=== PATIENT | female | born 1950 | race Caucasian/White ===

== ENCOUNTER 2021-03-18 16:15 | Emergency (ER) | payer MEDICARE, OTHER, SELFPAY ==
--- NOTE | 2021-03-18 17:08 | PC.NURSE ---
pt previously spoke with staff and stated she did not want to wait to be seen and would come back in am. observed pt leaving building accompanied by a male.
== END 2021-03-18 17:08 | disposition left against medical advice (07) ==
PROVIDERS: Emergency Provider Nurse Practitioner Family; PCP Family Medicine
DX: Z53.21 Procedure and treatment not carried out due to patient leaving prior to being seen by health care provider (principal)
CPT/HCPCS: 99199

== ENCOUNTER 2021-03-18 18:45 | Emergency (ER) | payer MEDICARE, OTHER, SELFPAY ==
--- NOTE | ~2021-03-18 | XR_ITS ---
XR hand RT min 3V DATE: 03/18/2021 19:11 INDICATION: Fall. Right wrist and hand pain TECHNIQUE: 3 views of right hand COMPARISON: None FINDINGS: Comminuted intra-articular fracture of the distal radius is again noted. There is mild osteoarthritis at the first carpometacarpal joint. No other fracture or dislocation is evident. IMPRESSION: Comminuted intra-articular fracture distal radius with dorsal inclination of distal radia l and reticular surface Reviewed, dictated and finalized at location A. IMPRESSION: Comminuted intra-articular fracture distal radius with dorsal incli nation of distal radial and reticular surface
--- NOTE | ~2021-03-18 | XR_ITS ---
XR wrist RT min 3V DATE: 03/18/2021 19:11 INDICATION: Fall. Right wrist and hand pain TECHNIQUE: 4 views of right wrist COMPARISON: None FINDINGS: There is a minimally displaced comminuted intra-articular fracture of the distal radius. Th ere is dorsal inclination of the distal radial articular surface. Radiocarpal alignment is preserved. No other fracture is evident. IMPRESSION: Comminuted intra-articular fracture of the distal radius with dorsal inclination of the d istal radial articular surface Reviewed, dictated and finalized at location A. IMPRESSION: Comminuted intra-articular fracture of the distal radius with dorsa l inclination of the distal radial articular surface
[2021-03-18 18:57] VITALS: BP 144/79; PULSE 85; RESP 16; TEMP 37.2; O2SAT 99
--- NOTE | 2021-03-18 19:01 | ED.GENADULT ---
HPI - General Adult General Chief complaint: Extremity Injury, Upper Stated complaint: rt wrist/hand injury Source: patient Mode of arrival: ambulatory Limitations: no limitations History of Present Illness HPI narrative: Patient is a 70-year-old female presents [facility] via POV for evaluation of a right wrist injury that occurred at approximately 130 today. She states she accidentally tripped over her flip-flop going up steps and fell onto right wrist. She reports nausea, pain, and swelling. Pain is intermittent and aching nature. Current pain level is 5 out of 10 on a pain scale. Ice and ibuprofen improves symptoms. Movement worsens symptoms. Related Data Home Medications Medication Instructions Recorded Confirmed No Home Medications 03/18/21 03/18/21 Allergies Allergy/AdvReac Type Severity Reaction Status Date / Time No Known Allergies Allergy Unverified 03/18/21 19:04 Review of Systems Review of Systems: Denies fever, chills, sweats, change in appetite, poor p.o. intake, malaise, skin color changes, rash, warmth, numbness, tingling, loss of sensation, deformity, decreased range of motion, weakness, difficulty with ambulation/coordination, abdominal pain, constipation, vomiting, lymphadenopathy, shortness of breath, chest pain, heart palpitations, and heart murmur. [facility] Past Medical History Medical History (Updated 03/18/21 @ 19:30 by MARCO Spencer, ) FH: mastectomy Surgical History Surgical History (Updated 03/18/21 @ 19:03 by MARCO Spencer, ) H/O hysterectomy for benign disease Family History Family History Father Family history of malignant neoplasm of bone Social History Social History Smoking status: Never smoker Second hand tobacco smoke exposure: No Alcohol intake: never Comments I have reviewed and agree with the patient's past medical, surgical, social, and family hx as documented by the RN. There is no relevant family history pertinent to the presenting complaint. Exam Narrative: GENERAL: Well-appearing, well-nourished, and in no acute distress. HEAD: Normocephalic, atraumatic. NECK: Supple. No Lymphadenopathy or nuchal rigidity appreciated. CHEST: Bilateral lung tompkins are clear to auscultation. No respiratory distress. No evidence of cough or pleuritic cp upon examination. HEART: Regular rate and rhythm. No murmur, gallop, or rub heard. EXTREMITIES: No evidence of injury, decreased ROM, swelling, cyanosis, hematoma, laceration, abrasion, deformity, rash, or puncture. No evidence of pain with active/passive ROM. No evidence of dislocation, ligament laxity, effusion, or pain at rest. Pulses palpable at 2+, strength 5/5, and cap refill < 3 seconds in affected extremity. DTRs normal. Gait normal. SKIN: Warm, dry, no rash. NEURO: No focal deficits. Alert and oriented x3. SPECIAL OBSERVATIONS: Smiling. Laughing. Course MANAGED CARE DIRECTOR/PA Physician Supervision Paper script for Tramadol 50 mg tab: take 1 tab PO Q8H PRN moderate pain Disp. 20 (twenty) tabs 0 refill Vital Signs Vital signs: Vital Signs Temperature 99 F 03/18/21 18:57 Pulse Rate 85 03/18/21 18:57 Respiratory Rate 16 03/18/21 18:57 Blood Pressure 144/79 H 03/18/21 18:57 Pulse Oximetry 99 03/18/21 18:57 Temperature 99 F 03/18/21 18:57 Pulse Rate 85 03/18/21 18:57 Respiratory Rate 16 03/18/21 18:57 Blood Pressure 144/79 H 03/18/21 18:57 Pulse Oximetry 99 03/18/21 18:57 Procedures Orthopedic Splinting/Casting Injury #1: Splinting/Casting Date: 03/18/21 Splinting/Casting Time: 19:28 Side: right Upper Extremity Injury Location: wrist Splint: prefabricated OCL: volar Pre-Procedure Neuro Vascular Exam: normal Post-Procedure Neuro Vascular Exam: normal Medical Decision Making Differential D
== END 2021-03-18 19:56 | disposition home or self-care (01) ==
PROVIDERS: Emergency Provider Nurse Practitioner Family; PCP Family Medicine
DX: S52.501A Unspecified fracture of the lower end of right radius, initial encounter for closed fracture (principal); W10.9XXA Fall (on) (from) unspecified stairs and steps, initial encounter; Z90.10 Acquired absence of unspecified breast and nipple
CPT/HCPCS: 29515; 73110; 73130; 99214; A4565; G0463

== ENCOUNTER 2021-03-29 07:55 | Outpatient (CLI) | payer MEDICARE, OTHER, SELFPAY ==
--- NOTE | ~2021-03-29 | XR_ITS ---
EXAMINATION: XR chest 2V DATE: 03/29/2021 10:38 INDICATION: Difficulty breathing TECHNIQUE: PA and lateral views of the chest were obtained. COMPARISON: Chest radiograph dated 05/05/2018 FINDINGS: The lungs remain clear with no focal airspace opacities, pulmonary edema, pleural effusion or pneumot horax. The cardiomediastinal silhouette is normal. Mild to moderate thoracic spondylosis. IMPRESSION: 1. No acute cardiopulmonary disease. Reviewed, dictated and finalized at location B.
[2021-03-29 10:06] LABS: Basophils Absolute Auto 0.1 K/mm3 (0.0-0.1); Eosinophils Absolute Auto 0.1 K/mm3 (0-0.3); Eosinophils Percent Auto 1.3 % (0-4.4); Hematocrit 44.5 % (37.0-47.0); Hemoglobin 14.5 g/dL (12.0-15.0); Immature Granulocyte Absolute 0.01 K/mm3 (0.00-0.031); Immature Granulocyte Percent A 0.1 % (0-0.5); Lymphocytes Absolute Auto 1.82 K/mm3 (0.9-3.2); Lymphocytes Percent Auto 26.7 % (18.3-44.2); Mean Corpuscular HGB Conc 32.6 g/dl (32-36); Mean Corpuscular Hemoglobin 28.8 pg (26-34); Mean Corpuscular Volume 88.3 fl (80-100); Mean Platelet Volume 9.7 fl (7.4-10.4); Monocytes Absolute Auto 0.6 K/mm3 (0.1-0.6); Monocytes Percent Auto 9.2 % (2.6-8.5); Neutrophils Absolute Auto 4.2 K/mm3 (1.3-6.7); Neutrophils Percent Auto 61.7 % (45.5-73.1); Platelet Count Result 372 k/mm3 (150-375); Red Blood Count 5.04 M/mm3 (4.2-5.4); Red Cell Distribution Width 13.2 % (11.5-14.5); White Blood Count 6.8 K/mm3 (4.5-10.0)
[2021-03-29 10:29] LABS: Alanine Aminotransferase 28 U/L (4-35); Albumin Level 4.6 g/dL (3.5-5.1); Alkaline Phosphatase 108 U/L (38-126); Anion Gap 8 mmol/L (8-16); Aspartate Amino Transferase 28 U/L (14-36); Bilirubin,Total 0.6 mg/dL (0.2-1.3); Blood Urea Nitrogen 13 mg/dL (7-17); Calcium 9.5 mg/dL (8.4-10.2); Carbon Dioxide 27 mmol/L (22-30); Chloride 99 mmol/L (98-107); Cholesterol 250 mg/dL (0-200); Estimated Glomerular Filt Rate > 60; Glucose 109 mg/dL (65-110); HDL Direct 46 mg/dL; Sodium 134 mmol/L (137-145); Triglycerides 128 mg/dL (<150)
[2021-03-29 10:40] LABS: LDL Cholesterol Direct 147 mg/dL
[2021-03-29 10:58] LABS: Vitamin D 25 Hydroxy 49.4 ng/mL
[2021-03-29 14:46] LABS: Folic Acid 8.6 ng/mL (2.76->20)
[2021-03-29 18:46] LABS: Add Urine Microscopic? YES; Appearance Urine Clear (Clear); Bacteria Urine Trace /hpf; Bilirubin Urine Negative (Negative); Blood Urine Negative (Negative); Color Urine Yellow (Yellow); Glucose Urine UA Negative (Negative); Ketones Urine Negative (Negative); Leukocyte Esterase Ur Negative LEU/UL (Negative); Mucus Urine Rare /lpf; Nitrate Urine Negative (Negative); Protein Urine Negative (Negative); RBC Urine 0-2 /hpf (0-2); Specific Grav Ur 1.017 (1.001-1.035); Squamous Epithelial Cell Urine Few /hpf (Few); Urobilinogen Urine Negative mg/dL (<2.0); WBC Urine 0-3 /hpf
== END 2021-03-29 07:56 | disposition home or self-care (01) ==
PROVIDERS: PCP Family Medicine; Visit Provider Orthopaedic Surgery
DX: R79.89 Other specified abnormal findings of blood chemistry (principal); E66.9 Obesity, unspecified; E55.9 Vitamin D deficiency, unspecified; Z79.899 Other long term (current) drug therapy; Z12.83 Encounter for screening for malignant neoplasm of skin; R06.00 Dyspnea, unspecified
CPT/HCPCS: 36415; 71046; 80053; 80061; 81001; 82306; 82607; 82746; 84443; 85025

== ENCOUNTER 2021-05-23 08:16 | Outpatient (CLI) | payer MEDICARE, OTHER, SELFPAY ==
--- NOTE | ~2021-05-23 | NM_ITS ---
EXAMINATION: NM akash stress w perfusion DATE: 05/23/2021 10:51 INDICATION: Dyspnea TECHNIQUE: Rest images were obtained following intravenous administration of 10.77 mCi Tc99m tetrofos min (Myoview). The patient was infused intravenously with Lexiscan (Regadenoson). Then, 31.23 mCi Tc9 9m tetrofosmin (Myoview) was administered intravenously, and stress images were obtained. Data was re constructed into short axis and horizontal and vertical long axis SPECT images. Gated SPECT images we re also obtained. COMPARISON: None. FINDINGS: There is no definite reversible or fixed perfusion abnormality to suggest ischemia or infar ction. There is normal left ventricular chamber size, wall motion and ejection fraction. Left ventr icular ejection fraction measures >70%. IMPRESSION: 1. Normal myocardial perfusion at rest and during stress. 2. Left ventricular ejection fraction measuring >70%. Reviewed, dictated and finalized at location A.
--- NOTE | 2021-05-23 08:22 | EST_ITS ---
Patient Info Name: Martha Worrell Age: 70 years : 1950 Gender: Female Ht: 66 in Wt: 220 lbs BSA: 2.20 m2 HR: 71 bpm BP: 153 / 99 mmHg Heart Rhythm: Sinus Rhythm Exam Date: 05/23/2021 9:55 AM Exam Location: [facility] Stress Patient Status: Outpatient Admit Date: 05/23/2021 Staff Ordering Physician: Yonis Hudson DO Attending Provider: Prince Killian MD Exercise Technologist: Gilma Mayer CT Exercise Physician: Salinas Kaur DO Exam Type: CA stress akash w NM Study Info Indications R06.00 - Dyspnea, unspecified A regadenoson stress test was performed. Summary 1. 1. Negative lexiscan stress test for ischemic ST changes by ECG criteria. 2. 2. Baseline hypertension. 3. 3. Nuclear scan to follow and will be reported separately. Please correlate with it. 4. 4. Patient informed of the above results. Protocol: Lexiscan Stress ECG Details Stage: REST Duration (min): 1 min : 27 sec HR (bpm): 70 SBP (mmHg): 153 DBP (mmHg): 99 Stage: REST Duration (min): 9 min : 49 sec HR (bpm): 73 SBP (mmHg): 153 DBP (mmHg): 99 Stage: STAGE 1 Duration (min): 0 min : 59 sec HR (bpm): 90 SBP (mmHg): 153 DBP (mmHg): 99 Stage: RECOVERY Duration (min): 1 min : 0 sec HR (bpm): 93 SBP (mmHg): 152 DBP (mmHg): 65 Stage: RECOVERY Duration (min): 2 min : 0 sec HR (bpm): 91 SBP (mmHg): 152 DBP (mmHg): 65 Stage: RECOVERY Duration (min): 3 min : 0 sec HR (bpm): 86 SBP (mmHg): 157 DBP (mmHg): 80 Stage: RECOVERY Duration (min): 3 min : 56 sec HR (bpm): 85 SBP (mmHg): 157 DBP (mmHg): 80 Rest HR: 73 bpm Peak HR: 94 bpm Rest Sys BP: 153 mmHg Peak Sys BP: 157 mmHg Max Pred HR: 152 bpm % Max Pred HR: 62 % Target HR: 129 bpm Max RPP: 14,758 bpm*mmHg Termination Reason: Completed protocol Cardiac Symptoms: Headache Total Time: 1 min : 0 sec Rest Lambert BP: 99 mmHg Peak Lambert BP: 80 mmHg Total Dose: 0.4 mg Resting ECG Sinus rhythm, IRBBB. Stress ECG No ST changes. Arrhythmias None. Report Signatures
[2021-05-23 10:01] LABS: Anion Gap 7 mmol/L (8-16); Blood Urea Nitrogen 13 mg/dL (7-17); Calcium 8.9 mg/dL (8.4-10.2); Carbon Dioxide 30 mmol/L (22-30); Chloride 103 mmol/L (98-107); Estimated Glomerular Filt Rate > 60; Glucose 98 mg/dL (65-110); Potassium 4.2 mmol/L (3.4-5.0); Sodium 140 mmol/L (137-145)
== END 2021-05-23 08:17 | disposition home or self-care (01) ==
LOC: ANHCARD 08:17
PROVIDERS: PCP Family Medicine; Visit Provider Family Medicine
DX: E87.1 Hypo-osmolality and hyponatremia (principal); R06.00 Dyspnea, unspecified; Z82.49 Family history of ischemic heart disease and other diseases of the circulatory system
CPT/HCPCS: 36415; 78452; 80048; 93017; 99212; A9502; G0463; J2785

== ENCOUNTER 2021-06-20 11:00 | Outpatient (RCR) | payer MEDICARE, OTHER, SELFPAY ==
--- NOTE | 2021-04-23 14:47 | OTOPEVAL ---
OCCUPATIONAL THERAPY INITIAL EVALUATION REPORT 04/23/21 Patient presents for outpatient OT following right wrist fx s/p ORIF. Orders today are for shoulder, elbow, and finger active ROM. She has been instructed in active ROM and has excellent return demonstration. She is also going out of town next week, so we are unable to follow up until 05/09. Plan to have patient complete her HEP independently and follow up then. Thank you for referring Martha Worrell to [facility].? The patient is scheduled to be seen for therapy reassessment on 05/09, will send an updated report then. Please review, sign, date and return this plan of care MARIAA. I agree with and certify that the following plan of care is medically necessary. Referring Physician Date Referring Provider: Srinivasa Monsalve MD *OT Outpatient Evaluation Start: 04/23/21 13:38 Therapy Assessment Status Assessment Status Assessment Status Evaluation Outpatient Past Medical History Past Medical History Source of Past Medical History Recalled from Previous Visit, Confirmed with Patient/Family Neurological History Hx Neurological Disorders No Significant History Cardiovascular History Hx Cardiac Disorders No Significant History Respiratory History Hx Respiratory Disorders No Significant History Gastrointestinal History Hx Gastrointestinal Disorders No Significant History Genitourinary History Hx Genitourinary Disorders No Significant History Musculoskeletal History Hx Arthritis Yes Hx Fractures Yes: Right distal radius fx s/ p ORIF 04/06/21 Hematological History Hx Hematological Disorders No Significant History Endocrine History Hx Endocrine Disorders No Significant History Other History Hx Cancer Yes: Breast CA s/p mastectomy Evaluation Information Problem Diagnosis s/p ORIF right distal radius Onset 04/06/21 Cause fall w/ wrist fx Subjective Information Patient presents today with Query Text:As Reported By Patient/ the right wrist in a cast and Family a sling donned. States she is to wear a sling when she leaves the house. She states that she's not using the right hand for ADLs, per MD orders. Her is currently helping her with bathing and dressing. She has not been able to do the laundry. Prior Level of Function Activity Level (Last 3 Months) Hand Dominance Left Activity of Daily Living Ability Independent Cooking Yes Cleaning Yes Laundry Yes Shopping Yes Driving Yes Pain Assessment Timing
--- NOTE | 2021-05-09 15:54 | OTOPEVAL ---
OCCUPATIONAL THERAPY REASSESSMENT AND POC UPDATE 05/09/21 Thank you for referring Martha Worrell to [facility].? The patient is scheduled to be seen for continued occupational therapy? 2x/week for 3 weeks. Please review, sign, date and return this plan of care MARIAA. I agree with and certify that the following plan of care is medically necessary. Referring Physician Date Referring Provider: Srinivasa Monsalve MD *OT Outpatient Re-Evaluation Start: 04/23/21 13:38 Re-Evaluation Information Diagnosis s/p ORIF right distal radius Onset 04/06/21 Cause fall w/ wrist fx Subjective Information Patient presents today with Query Text:As Reported By Patient/ new orders to begin wrist ROM. Family She now has a removable splint on the wrist that she is able to remove for exercises and to shower. She states she now is able to shower and dress independently . States she continues to have difficulty with household tasks due to her lifting restriction. Pain Assessment Timing of Pain Assessment Timing of Pain Assessment Re-assessment Pain Scale Pain Scale Used Numeric (1 - 10) Self Report Pain Assessment Right Arm(s) Reported Pain Level 0 Pain Description Tightness Pain Score Pain Score 0: Self Report Upper Extremity Range of Motion Scapular/ Shoulder Range of Motion Right Shoulder Flexion - Active 160 Shoulder Extension - Active 55 Shoulder Abduction - Active 160 Shoulder Medial Rotation - Active Able to reach iliac crest. 6 Query Text:Reach Behind the Back less than the left shoulder's IR. Shoulder Lateral Rotation - Active Able to reach cervical spine. Query Text:Reach Behind the Head Symmetrical to left ER. Elbow/Forearm Range of Motion Left Elbow Flexion - Active 140 Elbow Extension - Active 0 Forearm Supination - Active 85 Forearm Pronation - Active 85 Right Elbow Flexion - Active 140 Elbow Extension - Active 0 Forearm Supination - Active 70 Forearm Pronation - Active 85 Elbow/Forearm Range of Motion Comments Elbow flex/ext returned to normal limits. Wrist Range of Motion Left Wrist Flexion - Active 70 Wrist Extension - Active 75 Wrist Radial Deviation - Active 25 Wrist Ulnar Deviation - Active 30 Right Wrist Flexion - Active 35 Wrist Extension - Active 25 Wrist Radial Deviation - Active 15 Wrist Ulnar Deviation - Active 25 Fin
--- NOTE | 2021-05-31 09:52 | OTOPEVAL ---
OCCUPATIONAL THERAPY RE-EVALUATION AND POC UPDATE Thank you for referring Martha Worrell to [facility].? The patient is scheduled to be seen for continued occupational therapy? 0-2x/week for 3 weeks. Patient is out of town for the week of 06/10 and will not be seen that week. Please review, sign, date and return this plan of care MARIAA. I agree with and certify that the following plan of care is medically necessary. Referring Physician Date Referring Provider: Srinivasa Monsalve MD *OT Outpatient Evaluation Start: 04/23/21 13:38 Evaluation Information Problem Diagnosis s/p ORIF right distal radius Onset 04/06/21 Subjective Information Patient presents today for OT Query Text:As Reported By Patient/ re-evaluation. She has Family attended 5 treatment sessions for ROM of the forearm, wrist, and hand. She continues to wear a wrist immobilizer. Has follow up appointment with MD today. She states that in the last few weeks she has improved ability to do buttons , don socks, cook, and drive. Pain Assessment Timing of Pain Assessment Timing of Pain Assessment Re-assessment Pain Scale Pain Scale Used Numeric (1 - 10) Self Report Pain Assessment Right Arm(s) Reported Pain Level 0 Lowest Pain Intensity 0 Greatest Pain Intensity 5 Other Pain Aggravating Factors over doing it Pain Score Pain Score 0: Self Report Upper Extremity Range of Motion Scapular/ Shoulder Range of Motion Right Reason Not Measured WNL/Right Elbow/Forearm Range of Motion Right Elbow Flexion - Active 140 Elbow Extension - Active 0 Forearm Supination - Active 75 Forearm Pronation - Active 85 Elbow/Forearm Range of Motion Comments Elbow flex/ext returned to normal limits. Supination improved from 70* Wrist Range of Motion Right Wrist Flexion - Active 60 Wrist Extension - Active 55 Wrist Radial Deviation - Active 15 Wrist Ulnar Deviation - Active 30 Wrist Range of Motion Comments Flexion improved from 35* Extension improved from 25* RD remained at 15* UD improved from 25* Finger Range of Motion Right Index Finger Tip to Distal Palmar Crease 2 - Active Index Finger Tip to Base of Palm - 0 Active Middle Finger Tip to Distal Palmar 2 Crease - Active Middle Finger Tip to Base of Palm - 0 Active Ring Finger Tip to
--- NOTE | 2021-06-20 11:44 | OTOPEVAL ---
OCCUPATIONAL THERAPY RE-EVALUATION REPORT AND DISCHARGE SUMMARY 06/20/21 Martha presents for final OT re-evaluation after attending 10 therapy sessions for right wrist/hand stiffness and weakness s/p right distal radius fracture and ORIF. She has been completing strengthening HEP x3 weeks now and notes improvement with strength and functional use. She does report some residual weakness and stiffness, but understands that this will continue to improve with time and with stretching and strengthening. No further skilled OT indicated at this time. D/C with patient independent with HEP. Thank you for referring Martha Worrell to [facility]. Please review, sign, date and return this D/C Note MARIAA. I agree with and certify that the following plan of care is medically necessary. Referring Physician Date Referring Provider: Srinivasa Monsalve MD *OT Outpatient Re-Evaluation Start: 04/23/21 13:38 Problem Diagnosis s/p ORIF right distal radius Onset 04/06/21 Cause fall w/ wrist fx Subjective Information Patient reports that her wrist Query Text:As Reported By Patient/ that her wrist is doing Family great . She does report some residual weakness and stiffness, but reports that it is getting better. She notes having a lot less pain. She is doing more around the kitchen , but does state that she has to lift heavy pans with both hands. Pain Assessment Timing of Pain Assessment Timing of Pain Assessment Assessment Pain Scale Pain Scale Used Numeric (1 - 10) Self Report Pain Assessment Right Arm(s) Reported Pain Level 0 Lowest Pain Intensity 0 Greatest Pain Intensity 0 Pain Score Pain Score 0: Self Report Additional Pain Score Comments No pain, but the arm gets fatigued with use. Upper Extremity Range of Motion Elbow/Forearm Range of Motion Right Elbow Flexion - Active 140 Elbow Extension - Active 0 Forearm Supination - Active 80 Forearm Pronation - Active 85 Elbow/Forearm Range of Motion Comments Elbow flex/ext returned to normal limits. Supination improved from 70* Wrist Range of Motion Right Wrist Flexion - Active 60 Wrist Extension - Active 60 Wrist Radial Deviation - Active 20 Wrist Ulnar Deviation - Active 30 Wrist Range of Motion Comments Flexion improved from 35* Extension improved from 25* RD improved from 15* UD improved from 25* Finger Range of Motion Right Finger Range of Motion Comments Full fist returned to normal
== END 2021-06-21 09:17 | disposition home or self-care (01) ==
LOC: ANHOT 11:00
PROVIDERS: PCP Family Medicine; Visit Provider Orthopaedic Surgery
DX: Z47.89 Encounter for other orthopedic aftercare (principal)
CPT/HCPCS: 97018; 97110; 97140; 97165

== ENCOUNTER 2021-07-01 11:20 | Outpatient (CLI) | payer MEDICARE, OTHER, SELFPAY ==
--- NOTE | ~2021-07-01 | XR_ITS ---
EXAMINATION: XR lumbar spine 2-3V DATE: 07/01/2021 11:43 INDICATION: Chronic low back pain. TECHNIQUE: 3 views of lumbar spine were obtained. COMPARISON: None. FINDINGS: There is 16 degrees dextroscoliosis of lumbar spine. Vertebral body heights are normal. The re is severely decreased disc height at L1-L2, L3-L4, and L5-S1 and moderately decreased disc height at L2-L3 and L4-L5 with endplate remodeling. There is multilevel severe facet joint osteoarthritis. IMPRESSION: 1. Severe lumbar spondylosis. 2. Lumbar dextroscoliosis. Reviewed, dictated and finalized at location A. EMENT REQUEST CLERK
--- NOTE | ~2021-07-01 | XR_ITS ---
EXAMINATION: XR_CERV2-3V_CR DATE: 07/01/2021 11:43 INDICATION: Neck pain. TECHNIQUE: 4 views of cervical spine on 5 radiographs were obtained. COMPARISON: None. FINDINGS: There is 9 degrees dextrocurvature of cervicothoracic spine. There is 2 mm retrolisthesis o f C5 on C6. Vertebral body heights are normal. There is moderately decreased disc height at C5-C6. At C5-C6, there is moderate right and severe left uncovertebral joint osteoarthritis. The facet joints are unremarkable. There is mild central canal stenosis at C5-C6. No prevertebral soft tissue swelling . IMPRESSION: 1. Moderate spondylosis at C5-C6. Reviewed, dictated and finalized at location A. S PICKLER
== END 2021-07-01 11:21 | disposition home or self-care (01) ==
LOC: ANHBWCIMG 11:23
PROVIDERS: PCP Family Medicine; Visit Provider Family Medicine
DX: M47.892 Other spondylosis, cervical region (principal); M47.896 Other spondylosis, lumbar region
CPT/HCPCS: 72040; 72100

== ENCOUNTER 2021-07-30 10:28 | Outpatient (CLI) | payer MEDICARE, OTHER, SELFPAY ==
[2021-07-30 11:03] LABS: Hematocrit 43.2 % (37.0-47.0); Hemoglobin 14.1 g/dL (12.0-15.0); Mean Corpuscular HGB Conc 32.6 g/dl (32-36); Mean Corpuscular Hemoglobin 28.7 pg (26-34); Mean Corpuscular Volume 87.8 fl (80-100); Mean Platelet Volume 9.8 fl (7.4-10.4); Platelet Count Result 324 k/mm3 (150-375); Red Blood Count 4.92 M/mm3 (4.2-5.4); Red Cell Distribution Width 13.2 % (11.5-14.5); White Blood Count 5.4 K/mm3 (4.5-10.0)
[2021-07-30 11:16] LABS: Alanine Aminotransferase 20 U/L (4-35); Albumin Level 4.2 g/dL (3.5-5.1); Alkaline Phosphatase 95 U/L (38-126); Anion Gap 3 mmol/L (8-16); Aspartate Amino Transferase 24 U/L (14-36); Bilirubin,Total 0.4 mg/dL (0.2-1.3); Blood Urea Nitrogen 10 mg/dL (7-17); Calcium 8.9 mg/dL (8.4-10.2); Carbon Dioxide 30 mmol/L (22-30); Chloride 101 mmol/L (98-107); Cholesterol 247 mg/dL (0-200); Estimated Glomerular Filt Rate > 60; Glucose 105 mg/dL (65-110); HDL Direct 46 mg/dL; Potassium 3.7 mmol/L (3.4-5.0); Sodium 134 mmol/L (137-145); Triglycerides 121 mg/dL (<150)
[2021-07-30 11:21] LABS: Hemoglobin A1C 5.8 % (<5.7)
[2021-07-30 11:28] LABS: LDL Cholesterol Direct 160 mg/dL
[2021-07-30 11:46] LABS: Erythrocyte Sedimentation Rate 13 mm/hr (0-20)
== END 2021-07-30 10:29 | disposition home or self-care (01) ==
PROVIDERS: PCP Family Medicine; Visit Provider Family Medicine
DX: R12 Heartburn (principal); R51.9 Headache, unspecified; R13.10 Dysphagia, unspecified; K21.9 Gastro-esophageal reflux disease without esophagitis; E87.1 Hypo-osmolality and hyponatremia; E66.9 Obesity, unspecified; E78.5 Hyperlipidemia, unspecified; R79.89 Other specified abnormal findings of blood chemistry
CPT/HCPCS: 36415; 80053; 80061; 83036; 85027; 85652; 99212; G0463

== ENCOUNTER 2021-09-02 02:11 | Day surgery (SDC) | payer MEDICARE, OTHER, SELFPAY ==
[2021-08-30 09:47] VITALS: BMI 35.8
--- NOTE | 2021-08-30 13:18 | PM.HPGS ---
History of Present Illness History of Present Illness Consent: Risks, benefits, and alternatives have been discussed and questions answered. Patient agrees to proceed with procedure. Chief complaint: dysphagia Narrative: Martha Worrell is a 71 year old female who has difficulty swallowing for the past year too. Periodically when she is eating it seems hard to swallow. It seems as though things do not want to go down. Occasionally it will seem as though it is trying to sherri her airway. She does not cough when she is eating. She does suffer from chronic heartburn but only uses occasional [id number] medications. She has not been on prescription medicine for that. She has not had to leave the table because food is impacted and in between episodes her swallowing seems to be fine. She denies globus sensation or feeling of a lump in the throat. There has been no weight loss nausea or vomiting. Review of Systems Review of Systems: All systems reviewed & are unremarkable except as noted in HPI and below PMFSH Past Medical History Medical History Allergies Cancer FH: mastectomy GERD (gastroesophageal reflux disease) Surgical History Surgical History H/O hysterectomy for benign disease Family History Family History Father Family history of malignant neoplasm of bone Cancer Other Cancer Social History Social History Smoking status: Never smoker Second hand tobacco smoke exposure: No Alcohol intake: never Substance use: never Substance use type: does not use Living arrangements: with family Spiritual care concerns: No Meds Home Medications and Allergies Home Medications Medication Instructions Recorded Confirmed Type flurandrenolide 1 - 2 g TRANSDERMAL PRN 08/30/21 08/30/21 History Allergies Allergy/AdvReac Type Severity Reaction Status Date / Time No Known Allergies Allergy Verified 08/28/21 12:00 Exam Const: General: alert Orientation/consciousness: patient oriented x3 Resp: Auscultation: clear to auscultation bilaterally Cardio: Rhythm: regular rhythm GI: GI Palp: Yes Soft to palpation and No Tenderness to palpation present (GI) Neuro: General: patient oriented x3 Assessment and Plan Assessment and plan (1) Dysphagia: Code(s): R13.10 - Dysphagia, unspecified Status: Acute Assessment and Plan: EGD with possible biopsy or dilatation or cautery.
[2021-09-02 09:40] VITALS: BP 166/77; PULSE 73; RESP 20; TEMP 36.6; O2SAT 73; BMI 34.9
--- NOTE | 2021-09-02 09:53 | WPDANESEPPF ---
Anes - Initial Pre Proc Eval Procedure: Operation Date: 09/02/21 11:00 Proposed Procedures p Esophagogastroduodenoscopy - Edmond Jaffe MD Date/Time: 09/02/21 09:53 Surgeon: Edmond Jaffe MD Pre Op Diagnosis: dysphagia Patient Data Age: 71 Gender: F Height: 1.65 m Weight: 95.4 kg Last Vital Signs Temp 36.6 C 09/02/21 09:40 Pulse 73 09/02/21 09:40 Resp 20 09/02/21 09:40 BP 166/77 H 09/02/21 09:40 Pulse Ox 73 L 09/02/21 09:40 Allergies Allergy/AdvReac Type Severity Reaction Status Date / Time No Known Allergies Allergy Verified 08/28/21 12:00 Home Medications Medication Instructions Recorded Confirmed Type flurandrenolide 1 - 2 g TRANSDERMAL PRN 08/30/21 08/30/21 History Patient hx anesthesia problems: none Family hx anesthesia problems: none Results Review: All pre-operative results and documents have been reviewed as part of the pre-operative evaluation. [facility] Past Medical History Medical History Allergies Cancer FH: mastectomy GERD (gastroesophageal reflux disease) Surgical History Surgical History H/O hysterectomy for benign disease Family History Family History Father Family history of malignant neoplasm of bone Cancer Other Cancer Social History Social History Smoking status: Never smoker Second hand tobacco smoke exposure: No Alcohol intake: never Substance use: never Substance use type: does not use Living arrangements: with family Spiritual care concerns: No Anes - Eval Final PreProcedure Day of Procedure 09/02/21 09:53 Patient weight: obese Heart: regular rate and rhythm Lungs: clear to auscultation Airway: Mallampati scale class II Neurological: alert and oriented Last oral intake: >/= 8 hours ASA classification: III Emergent: no Anesthetic plan: proceed Anesthesia type and monitoring: general GIVS and standard monitoring Results Review: All pre-operative results and documents have been reviewed as part of the pre-operative evaluation. Informed Consent: The patient's anesthetic plan and its attendant risks and benefits were discussed with the patient/family/POA. Questions were solicited and answers provided to the satisfaction of the patient/family/POA.
[2021-09-02] MEDS: LACTATED RINGERS 1,000 ML 150 ML IV CONT (10:07)
[2021-09-02] MEDS: BENZOCAINE (*SP) 60 ML SPRAY CAN (HURRICAINE) 1 SPRAY MUCOUS MEM (10:22)
[2021-09-02 10:37] VITALS: BP 143/85; PULSE 74; RESP 24; O2SAT 97
[2021-09-02 10:47] VITALS: BP 158/129; PULSE 68; RESP 18; O2SAT 97
[2021-09-02 10:57] VITALS: BP 154/88; PULSE 73; RESP 14; O2SAT 100
== END 2021-09-02 11:21 | disposition home or self-care (01) ==
PROVIDERS: PCP Family Medicine; Visit Provider Internal Medicine Gastroenterology
PROC: 0DJ08ZZ Inspection of Upper Intestinal Tract, Via Natural or Artificial Opening Endoscopic (ICD-10-PCS; CPT 43235; principal; 2021-09-02 11:00)
DX: R13.10 Dysphagia, unspecified (principal); K21.00 Gastro-esophageal reflux disease with esophagitis, without bleeding; K22.70 Barrett's esophagus without dysplasia; E66.9 Obesity, unspecified; Z68.35 Body mass index [BMI] 35.0-35.9, adult
CPT/HCPCS: 43239; 88305; J2704; J7120

== ENCOUNTER 2021-09-06 14:28 | Outpatient (CLI) | payer MEDICARE, OTHER, SELFPAY ==
--- NOTE | 2021-09-06 | ECHO_ITS ---
Patient Info Name: Martha Worrell Age: 71 years : 1950 Gender: Female Ht: 65 in Wt: 220 lbs BSA: 2.18 m2 HR: 69 bpm BP: 176 / 104 mmHg Heart Rhythm: Sinus Arrhythmia Technical Quality: Fair Exam Date: 09/06/2021 2:59 PM Exam Location: [facility] Patient Status: Outpatient Admit Date: 09/06/2021 Staff Ordering Physician: Salinas Kaur DO Airport Manager: Cristin Fenton RDCS Attending Provider: Salinas Kaur DO Referring Physician: Vincent WEEKS; Exam Type: CA echo doppler color flow Study Info Indications - dyspnea, unspecified Complete two-dimensional, color flow and Doppler transthoracic echocardiogram is performed. Summary 1. Complete two-dimensional, color flow and Doppler transthoracic echocardiogram is performed. 2. Left ventricular chamber dimension is normal. 3. Left ventricular systolic function is normal, estimated at 60-65%. 4. The left ventricular diastolic function is grade I diastolic dysfunction. 5. There is mild tricuspid valve regurgitation. 6. No pulmonary hypertension, estimated pulmonary arterial systolic pressure is 31 mmHg. Left Ventricle Tissue doppler is not performed. Left ventricular chamber dimension is normal. Left ventricular systolic function is normal, estimated at 60-65%. The left ventricular diastolic function is grade I diastolic dysfunction. Right Ventricle Right ventricular chamber dimension is normal. Right ventricular systolic function is normal. Left Atria Left atrial chamber dimension is normal. Right Atria Right atrial chamber dimension is normal. Aortic Valve The aortic valve is trileaflet. There is no aortic valve stenosis. There is no aortic valve regurgitation. Pulmonic Valve There is no pulmonic regurgitation. Mitral Valve There is no mitral valve stenosis. There is no mitral valve regurgitation. Tricuspid Valve There is mild tricuspid valve regurgitation. No pulmonary hypertension, estimated pulmonary arterial systolic pressure is 31 mmHg. Pericardium/Pleural There is no pericardial effusion. Inferior Vena Cava Normal inferior vena cava with >50% collapse upon inspiration consistent with normal right atrial pressure, 5 mmHg. Aorta The aortic root size at the sinus of Valsalva is normal. Left Ventricular Outflow Tract Name Value Normal LVOT 2D LVOT Diameter 2.0 cm LVOT Doppler LVOT Peak Gradient 4 mmHg LVOT Mean Gradient 2 mmHg LVOT VTI 21 cm LVOT VTI/AV VTI Ratio 0.6 LVOT Stroke Volume 63 ml LVOT CO 4.4 l/min LVOT CI 2.0 l/min/m2 Pulmonic Valve Name Value Normal RVOT Doppler RVOT Peak Gradient 2 mmHg
== END 2021-09-06 14:29 | disposition home or self-care (01) ==
LOC: ANHCARD 14:30
PROVIDERS: PCP Family Medicine; Visit Provider Internal Medicine Cardiovascular Disease
DX: R06.00 Dyspnea, unspecified (principal); I36.1 Nonrheumatic tricuspid (valve) insufficiency
CPT/HCPCS: 93306

== ENCOUNTER 2021-12-07 10:02 | Emergency (ER) | payer MEDICARE, OTHER, SELFPAY ==
[2021-12-07 10:12] VITALS: BP 174/94; PULSE 83; RESP 16; TEMP 36.8; O2SAT 98
--- NOTE | 2021-12-07 10:13 | ED.EAR ---
HPI - Ear Problem General Chief complaint: Ear Stated complaint: ear ache Time Seen by Provider: 12/07/21 10:13 Source: patient Mode of arrival: ambulatory Limitations: no limitations History of Present Illness HPI Narrative: 71-year-old female presented for complaint of right ear pain, onset last night at 2100. She states the pain is severe, rating it a 10 out of 10, sharp and shooting. Pain with swallowing. she took ibuprofen last night. She endorses chronic sinus congestion and drainage for which she is taking Claritin. She denies dental pain, tinnitus, dizziness, nausea, vomiting, fevers or chills. Endorses 1-2 ear infections per year. She has been out of the country in [place] for approximately 22 years. She has not followed with ENT specialist. MD Complaint: ear pain Related Data Home Medications Medication Instructions Recorded Confirmed flurandrenolide 1 - 2 g TRANSDERMAL PRN 08/30/21 09/02/21 pantoprazole PO 12/07/21 Allergies Allergy/AdvReac Type Severity Reaction Status Date / Time No Known Allergies Allergy Verified 12/07/21 10:09 Review of Systems Review of Systems: CONSTITUTIONAL: Denies malaise, chills, or fever. EYES: Denies visual changes, redness, or discharge. ENT: Denies rhinorrhea, congestion, sinus pain, and sore throat. Reports ear pain CARDIOVASCULAR: Denies chest pain, palpitations, or edema. RESPIRATORY: Denies cough or dyspnea. GASTROINTESTINAL: Denies abdominal pain, nausea, vomiting, diarrhea SKIN: Denies rash or itching. MUSCULOSKELETAL: Denies myalgia. NEUROLOGIC: Denies headache. All systems reviewed & are unremarkable except as noted in HPI and below PMFSH Past Medical History Medical History Allergies Cancer FH: mastectomy GERD (gastroesophageal reflux disease) Surgical History Surgical History H/O hysterectomy for benign disease Family History Family History Father Family history of malignant neoplasm of bone Cancer Other Cancer Social History Social History Smoking status: Never smoker Second hand tobacco smoke exposure: No Alcohol intake: never Substance use: never Substance use type: does not use Spiritual care concerns: No Comments At time of signature, agree with nursing past medical, surgical, social and family history. There is no relevant family history pertinent to the presenting complaint Exam Narrative: GENERAL: Well-appearing, appears in pain HEAD: Normocephalic EYES: conjunctivae clear ENT: Nares clear. Mucous membranes moist. TM pearly hannah with dull light reflex bilaterally; no tragal tenderness. Oropharynx not erythematous without lesions and without exudate, no drooling, no hoarseness, no trismus, uvula midline. NECK: Supple. No lymphadenopathy CHEST: Clear to auscultation, breath sounds equal. No wheezing, rhonchi, rales, or stridor. HEART: Regular rate and rhythm. No murmur heard. SKIN: Warm, dry, no rash. NEURO: Alert and oriented x3. PSYCH: Normal mood and affect Course Course Emergency Course: Patient is aware of diagnosis, understands and agrees to treatment plan. Anticipatory guidance given. Patient agrees to follow-up as directed and is aware of reasons to seek care at the emergency department. Portions of this record may have been created with voice recognition software Level of Care: Express Care Visit Vital Signs Vital signs: Reviewed Medical Decision Making MDM Narrative Medical decision making narrative: Patient is advised to consider switching from Claritin to Zyrtec, using Flonase spray for sinus congestion. She is advised to follow-up with PCP and ENT if symptoms persist. Antibiotic is given at this time, however she is advised to start it if symptoms persist or worsen significan
== END 2021-12-07 10:30 | disposition home or self-care (01) ==
PROVIDERS: Emergency Provider Nurse Practitioner Family; PCP Family Medicine
DX: H92.01 Otalgia, right ear (principal)
CPT/HCPCS: 99213; G0463

== ENCOUNTER 2021-12-13 07:43 | Outpatient (CLI) | payer MEDICARE, OTHER, SELFPAY ==
[2021-12-13 08:29] LABS: Anion Gap 5 mmol/L (8-16); Blood Urea Nitrogen 22 mg/dL (7-17); Calcium 8.6 mg/dL (8.4-10.2); Carbon Dioxide 28 mmol/L (22-30); Chloride 104 mmol/L (98-107); Estimated Glomerular Filt Rate > 60; Glucose 100 mg/dL (65-110); Potassium 4.2 mmol/L (3.4-5.0); Sodium 137 mmol/L (137-145)
[2021-12-13 08:33] LABS: Hemoglobin A1C 5.7 % (<5.7)
== END 2021-12-13 07:44 | disposition home or self-care (01) ==
LOC: ANHLAB 07:47
PROVIDERS: PCP Family Medicine; Visit Provider Family Medicine
DX: E87.1 Hypo-osmolality and hyponatremia (principal); R73.03 Prediabetes; R79.89 Other specified abnormal findings of blood chemistry
CPT/HCPCS: 36415; 80048; 83036; 99212; G0463

== ENCOUNTER 2022-03-25 09:15 | Outpatient (CLI) | payer MEDICARE, OTHER, SELFPAY ==
--- NOTE | ~2022-03-25 | XR_ITS ---
EXAMINATION: XR sinus min 3V INDICATION: Chronic congestion TECHNIQUE: Five views of the paranasal sinuses are obtained. COMPARISON: None available FINDINGS: The right frontal sinuses are hypoplastic. The remaining paranasal sinuses appear to be wel l aerated. No facial fracture is identified. IMPRESSION: 1. No definite sinus disease although sensitivity of radiographs is low. There is high suspicion for clinically significant sinus disease, consider sinus CT. Reviewed, dictated and finalized at location B.
== END 2022-03-25 09:16 | disposition home or self-care (01) ==
LOC: ANHBWCIMG 09:18
PROVIDERS: PCP Family Medicine; Visit Provider Family Medicine
DX: J34.89 Other specified disorders of nose and nasal sinuses (principal)
CPT/HCPCS: 70220

== ENCOUNTER 2022-05-27 10:20 | Outpatient (CLI) | payer MEDICARE, OTHER, SELFPAY ==
[2022-05-27 10:59] LABS: Cholesterol 225 mg/dL (0-200); HDL Direct 44 mg/dL; Triglycerides 101 mg/dL (<150)
[2022-05-27 11:10] LABS: LDL Cholesterol Direct 146 mg/dL
== END 2022-05-27 10:21 | disposition home or self-care (01) ==
PROVIDERS: PCP Family Medicine; Visit Provider Internal Medicine Cardiovascular Disease
DX: E78.5 Hyperlipidemia, unspecified (principal)
CPT/HCPCS: 36415; 80061

== ENCOUNTER 2022-06-17 08:20 | Outpatient (CLI) | payer MEDICARE, OTHER, SELFPAY ==
[2022-06-17 09:06] LABS: Anion Gap 13 mmol/L (8-16); Blood Urea Nitrogen 16 mg/dL (7-17); Calcium 8.7 mg/dL (8.4-10.2); Carbon Dioxide 26 mmol/L (22-30); Chloride 102 mmol/L (98-107); Cholesterol 244 mg/dL (0-200); Estimated Glomerular Filt Rate > 60; Glucose 100 mg/dL (65-110); HDL Direct 41 mg/dL; Potassium 3.8 mmol/L (3.4-5.0); Sodium 141 mmol/L (137-145); Triglycerides 136 mg/dL (<150)
[2022-06-17 09:17] LABS: LDL Cholesterol Direct 135 mg/dL
[2022-06-17 09:51] LABS: Hemoglobin A1C 5.9 % (<5.7)
== END 2022-06-17 08:21 | disposition home or self-care (01) ==
PROVIDERS: PCP Family Medicine; Visit Provider Family Medicine
DX: E87.1 Hypo-osmolality and hyponatremia (principal); E78.5 Hyperlipidemia, unspecified; R73.03 Prediabetes
CPT/HCPCS: 36415; 80048; 80061; 83036; 99212; G0463

== ENCOUNTER 2023-02-19 09:01 | Outpatient (CLI) | payer MEDICARE, OTHER, SELFPAY ==
[2023-02-19 09:59] LABS: Basophils Absolute Auto 0.1 K/mm3 (0.0-0.1); Basophils Percent Auto 1.3 % (0.2-1.2); Eosinophils Absolute Auto 0.1 K/mm3 (0-0.3); Eosinophils Percent Auto 1.8 % (0-4.4); Hematocrit 42.7 % (37.0-47.0); Hemoglobin 13.9 g/dL (12.0-15.0); Immature Granulocyte Absolute 0.02 K/mm3 (0.00-0.031); Immature Granulocyte Percent A 0.3 % (0-0.5); Lymphocytes Absolute Auto 1.56 K/mm3 (0.9-3.2); Lymphocytes Percent Auto 25.7 % (18.3-44.2); Mean Corpuscular HGB Conc 32.6 g/dl (32-36); Mean Corpuscular Hemoglobin 28.1 pg (26-34); Mean Corpuscular Volume 86.3 fl (80-100); Mean Platelet Volume 10.3 fl (7.4-10.4); Monocytes Absolute Auto 0.6 K/mm3 (0.1-0.6); Neutrophils Absolute Auto 3.8 K/mm3 (1.3-6.7); Neutrophils Percent Auto 61.9 % (45.5-73.1); Platelet Count Result 329 k/mm3 (150-375); Red Blood Count 4.95 M/mm3 (4.2-5.4); Red Cell Distribution Width 13.6 % (11.5-14.5); White Blood Count 6.1 K/mm3 (4.5-10.0)
== END 2023-02-19 09:02 | disposition home or self-care (01) ==
PROVIDERS: PCP Family Medicine; Visit Provider Nurse Practitioner
DX: R73.03 Prediabetes (principal); R06.00 Dyspnea, unspecified; E66.9 Obesity, unspecified; E55.9 Vitamin D deficiency, unspecified
CPT/HCPCS: 36415; 84443; 85025; 99212; G0463

== ENCOUNTER 2023-03-24 08:25 | Outpatient (CLI) | payer MEDICARE, OTHER, SELFPAY ==
[2023-03-24 09:19] LABS: Alanine Aminotransferase 23 U/L (6-35); Albumin Level 4.1 g/dL (3.5-5.1); Alkaline Phosphatase 81 U/L (38-126); Anion Gap 4 mmol/L (8-16); Aspartate Amino Transferase 24 U/L (14-36); Bilirubin,Total 0.4 mg/dL (0.2-1.3); Blood Urea Nitrogen 15 mg/dL (7-17); Calcium 8.7 mg/dL (8.4-10.2); Carbon Dioxide 29 mmol/L (22-30); Chloride 103 mmol/L (98-107); Cholesterol 245 mg/dL (0-200); Estimated Glomerular Filt Rate > 60; Glucose 96 mg/dL (65-110); HDL Direct 46 mg/dL; Sodium 136 mmol/L (137-145); Triglycerides 125 mg/dL (<150)
[2023-03-24 09:30] LABS: LDL Cholesterol Direct 154 mg/dL
== END 2023-03-24 08:26 | disposition home or self-care (01) ==
PROVIDERS: PCP Family Medicine; Visit Provider Internal Medicine Cardiovascular Disease
DX: E78.5 Hyperlipidemia, unspecified (principal)
CPT/HCPCS: 36415; 80053; 80061; 99212; G0463

== ENCOUNTER 2023-06-08 10:29 | Outpatient (CLI) | payer MEDICARE, OTHER, SELFPAY ==
[2023-06-08 11:19] LABS: Cholesterol 253 mg/dL (0-200); HDL Direct 49 mg/dL; Triglycerides 134 mg/dL (<150)
[2023-06-08 11:29] LABS: LDL Cholesterol Direct 149 mg/dL
[2023-06-08 11:43] LABS: Vitamin D 25 Hydroxy 33.5 ng/mL
== END 2023-06-08 10:30 | disposition home or self-care (01) ==
PROVIDERS: PCP Nurse Practitioner Adult Health; Referring Provider Internal Medicine Cardiovascular Disease; Visit Provider Family Medicine
DX: E78.5 Hyperlipidemia, unspecified (principal); E55.9 Vitamin D deficiency, unspecified
CPT/HCPCS: 36415; 80061; 82306; 99212; G0463

== ENCOUNTER 2023-07-29 07:55 | Outpatient (CLI) | payer MEDICARE, OTHER, SELFPAY ==
[2023-07-29 08:33] LABS: Alanine Aminotransferase 21 U/L (6-35); Albumin Level 4.2 g/dL (3.5-5.1); Alkaline Phosphatase 95 U/L (38-126); Anion Gap 8 mmol/L (8-16); Aspartate Amino Transferase 21 U/L (14-36); Bilirubin,Total 0.4 mg/dL (0.2-1.3); Blood Urea Nitrogen 12 mg/dL (7-17); Calcium 8.9 mg/dL (8.4-10.2); Carbon Dioxide 28 mmol/L (22-30); Chloride 103 mmol/L (98-107); Cholesterol 191 mg/dL (0-200); Estimated Glomerular Filt Rate > 60; Glucose 106 mg/dL (65-110); HDL Direct 50 mg/dL; Sodium 139 mmol/L (137-145); Triglycerides 124 mg/dL (<150)
[2023-07-29 08:45] LABS: LDL Cholesterol Direct 96 mg/dL
== END 2023-07-29 07:56 | disposition home or self-care (01) ==
PROVIDERS: PCP Nurse Practitioner Adult Health; Visit Provider Internal Medicine Cardiovascular Disease
DX: E78.5 Hyperlipidemia, unspecified (principal)
CPT/HCPCS: 36415; 80053; 80061; 99212; G0463

== ENCOUNTER 2023-08-22 18:21 | Emergency (ER) | payer MEDICARE, OTHER, SELFPAY ==
[2023-08-22 18:33] VITALS: BP 174/115; PULSE 87; RESP 18; TEMP 37; O2SAT 98
[2023-08-22 19:48] VITALS: BP 175/112; PULSE 73; RESP 20; O2SAT 96
--- NOTE | 2023-08-22 19:53 | ED.GENADULT ---
HPI - General Adult General Chief complaint: Ear Stated complaint: left ear pain Time Seen by Provider: 08/22/23 19:42 History of Present Illness HPI narrative: Patient 73-year-old female who presents emergency department with chief complaint of left ear pain. Patient reports that she started having pain this morning reports that she has taken 2 doses of amoxicillin reports that the pain is in the left ear radiating to her jaw the patient reports that she has had some nasal congestion denies fever reports this feels similar to whenever she has had ear infections before in the past. Patient reports she is seen by your nose and throat Related Data Allergies Allergy/AdvReac Type Severity Reaction Status Date / Time No Known Allergies Allergy Verified 06/23/23 14:49 Review of Systems Review of Systems: A 10 system review of systems was completed on the patient and is negative except for what is stated in the HPI. Nursing and ancillary documentation was reviewed. PMFSH Past Medical History Medical History Allergies Cancer FH: mastectomy GERD (gastroesophageal reflux disease) Surgical History Surgical History H/O hysterectomy for benign disease Family History Family History Father Family history of malignant neoplasm of bone Cancer Other Cancer Social History Social History Smoking status: Never smoker Second hand tobacco smoke exposure: No Alcohol intake: never Substance use: never Substance use type: does not use Lack of Transportation: No Lack of Food: Never True Current Housing: I Have Housing Concerned About Future Housing: No Difficulty Paying Gas/Electric Bills: No Difficulty Paying for Meds: No Currently Unemployed: Decline to Answer Education: High School Diploma/GED Difficulty w/ Childcare or Family Care: No Living arrangements: with family Occupation/Education: other Gender identity (if verbalized by the patient): Female Sexual Orientation (if Verbalized by the Patient): Straight or Heterosexual Spiritual care concerns: No Exam Narrative: GENERAL: Well-appearing, well-nourished, and in no acute distress. HEAD: Normocephalic, atraumatic. EYES: PERRLA and EOMI. ENT: Nares clear, no rhinorrhea or epistaxis. Mucous membranes moist. left tympanic membrane is nonerythematous is bulging slightly. NECK: Supple. CHEST: Clear to auscultation. No respiratory distress. HEART: Regular rate and rhythm. No murmur heard. Normal peripheral pulses. ABDOMEN: Soft, nontender, nondistended, normal active bowel sounds. EXTREMITIES: Normal range of motion. No edema. SKIN: Warm, dry, no rash. NEURO: No focal deficits. Alert and oriented x3. PSYCH: Normal mood and affect. Course Vital Signs Vital signs: Vital Signs Temperature 37.0 C 08/22/23 18:33 Pulse Rate 87 08/22/23 18:33 Respiratory Rate 18 08/22/23 18:33 Blood Pressure 174/115 H 08/22/23 18:33 Pulse Oximetry 98 08/22/23 18:33 Oxygen Delivery Room Air 08/22/23 18:33 Temperature 37.0 C 08/22/23 18:33 Pulse Rate 73 08/22/23 19:48 Respiratory Rate 20 08/22/23 19:48 Blood Pressure 175/112 H 08/22/23 19:48 Pulse Oximetry 96 08/22/23 19:48 Oxygen Delivery Room Air 08/22/23 18:33 Medical Decision Making MDM Narrative Medical decision making narrative: differential diagnosis includes otitis media, TMJ discomfort, otalgia, patient is nontoxic is in moderate distress. The patient's part he started antibiotics at this point. The ear does not appear to be grossly infected it is not perforated the patient will be given pain control in the emergency department and started on anti-inflammatories and a steroid the patie
[2023-08-22] MEDS: predniSONE 20 MG TABLET 60 MG PO (20:02)
[2023-08-22] MEDS: HYDROcodone/acetaminophen (*CRX) 5-325 MG TABLET 1 TAB PO (20:03)
[2023-08-22] MEDS: KETOROLAC 30 MG/ML VIAL (*BKC) IM (20:09)
[2023-08-22 20:36] VITALS: BP 179/83; PULSE 74; RESP 20; O2SAT 99
== END 2023-08-22 20:50 | disposition home or self-care (01) ==
PROVIDERS: Emergency Provider Emergency Medicine; PCP Family Medicine
DX: H92.02 Otalgia, left ear (principal); K21.9 Gastro-esophageal reflux disease without esophagitis; Z85.3 Personal history of malignant neoplasm of breast; Z90.710 Acquired absence of both cervix and uterus; Z90.10 Acquired absence of unspecified breast and nipple
CPT/HCPCS: 96372; 99283; A9270; J1885; J7512

== ENCOUNTER 2023-09-07 12:59 | Outpatient (CLI) | payer MEDICARE, OTHER, SELFPAY ==
--- NOTE | ~2023-09-07 | CT_ITS ---
EXAMINATION: CT brain wo con DATE: 09/07/2023 13:20 INDICATION: New daily persistent headache for 2.5 weeks TECHNIQUE: Computed tomography (CT) of the head was performed without intravenous contrast. The mA wa s adjusted according to patient size. Iterative reconstruction technique was employed. Exam dose: 68 1.00 mGy-cm total exam DLP. COMPARISON: None FINDINGS: Prominent bilateral carotid siphon internal carotid artery calcifications and right vertebr al artery calcification. There is patchy nonspecific diminished attenuation of the cerebral white matter, likely due to chroni c small vessel ischemic changes. No intracranial mass lesion or hemorrhage or cerebrovascular accident, midline shift or mass effect i s detected. No subdural or epidural hematoma. Small fluid levels are noted in both maxillary sinuses. There is some soft tissue thickening of the e thmoid air cells. The paranasal sinuses are otherwise unremarkable. Normal development and aeration o f the mastoid air cells. No fracture or bone destruction of the cranial vault is detected. IMPRESSION: Cerebral atherosclerosis and chronic small vessel ischemic changes of the cerebral white matter 6 no acute intracranial finding Small fluid levels in both maxillary sinuses, patchy soft tissue thickening of the ethmoid air cells Reviewed, dictated and finalized at Location A. Reviewed, dictated and finalized at location B. CTOR OF MAINTENANCE
== END 2023-09-07 13:00 | disposition home or self-care (01) ==
LOC: ANHIMG 13:02
PROVIDERS: PCP Family Medicine; Visit Provider Family Medicine
DX: G44.52 New daily persistent headache (NDPH) (principal); I67.2 Cerebral atherosclerosis
CPT/HCPCS: 70450

== ENCOUNTER 2024-07-12 09:29 | Outpatient (CLI) | payer MEDICARE, OTHER, SELFPAY ==
--- NOTE | ~2024-07-12 | XR_ITS ---
Left Knee Technique: AP, lateral, and sunrise views were obtained. Clinical History: Pain Findings: No fracture or dislocation is seen. There is medial compartment narrowing with mild tricomp artmental osteophyte formation. Soft tissues are unremarkable. No joint effusion is seen. Impression: Degenerative change, as detailed above. Reviewed, dictated and finalized at location M. MACHINE OPERATOR Impression: Degenerative change, as detailed above.
--- NOTE | ~2024-07-12 | XR_ITS ---
Right Knee Technique: AP, lateral, and sunrise views were obtained. Clinical History: Pain Findings: No fracture or dislocation is seen. There is medial compartment narrowing. There is moderat e tricompartmental osteophyte formation. Soft tissues are unremarkable. No joint effusion is seen. Impression: Moderate to advanced degenerative change, as detailed above. Reviewed, dictated and finalized at location M. RINTENDENT PLANT PROTECTION Impression: Moderate to advanced degenerative change, as detailed above.
[2024-07-12 10:16] LABS: Hematocrit 41.9 % (37.0-47.0); Hemoglobin 13.5 g/dL (12.0-15.0); Mean Corpuscular HGB Conc 32.2 g/dl (32-36); Mean Corpuscular Hemoglobin 28.7 pg (26-34); Mean Platelet Volume 10.2 fl (7.4-10.4); Platelet Count Result 311 k/mm3 (150-375); Red Blood Count 4.71 M/mm3 (4.2-5.4); Red Cell Distribution Width 13.3 % (11.5-14.5); White Blood Count 6.5 K/mm3 (4.5-10.0)
[2024-07-12 11:10] LABS: Alanine Aminotransferase 20 U/L (6-35); Albumin Level 4.3 g/dL (3.5-5.1); Alkaline Phosphatase 88 U/L (38-126); Anion Gap 4 mmol/L (4-12); Aspartate Amino Transferase 27 U/L (14-36); Bilirubin,Total 0.6 mg/dL (0.2-1.3); Blood Urea Nitrogen 18 mg/dL (7-17); Calcium 9.1 mg/dL (8.4-10.2); Carbon Dioxide 29 mmol/L (22-30); Chloride 106 mmol/L (98-107); Cholesterol 172 mg/dL (0-200); Estimated Glomerular Filt Rate > 60; Glucose 98 mg/dL (65-110); HDL Direct 49 mg/dL; Potassium 3.9 mmol/L (3.4-5.0); Sodium 139 mmol/L (137-145); Triglycerides 105 mg/dL (<150)
[2024-07-12 11:21] LABS: LDL Cholesterol Direct 86 mg/dL
[2024-07-12 11:26] LABS: Vitamin D 25 Hydroxy 27.7 ng/mL
[2024-07-12 11:41] LABS: Thyroid Stimulating Hormone 0.931 uIU/mL (0.465-4.680)
[2024-07-12 12:01] LABS: Hemoglobin A1C 5.9 % (<5.7)
== END 2024-07-12 09:30 | disposition home or self-care (01) ==
PROVIDERS: PCP Family Medicine; Referring Provider Internal Medicine Nephrology; Visit Provider Family Medicine
DX: R06.00 Dyspnea, unspecified (principal); Z00.00 Encounter for general adult medical examination without abnormal findings; I10 Essential (primary) hypertension; G47.33 Obstructive sleep apnea (adult) (pediatric); R73.03 Prediabetes; M54.2 Cervicalgia; E66.9 Obesity, unspecified; R79.89 Other specified abnormal findings of blood chemistry; E78.5 Hyperlipidemia, unspecified; R51.9 Headache, unspecified; K21.9 Gastro-esophageal reflux disease without esophagitis; E55.9 Vitamin D deficiency, unspecified; M17.0 Bilateral primary osteoarthritis of knee
CPT/HCPCS: 36415; 73562; 80053; 80061; 82306; 83036; 84443; 85027; 99212; G0463

== ENCOUNTER 2024-09-06 16:24 | Outpatient (CLI) | payer MEDICARE, OTHER, SELFPAY ==
--- NOTE | ~2024-09-06 | XR_ITS ---
Exam: Abdomen 1V -obstructive series HISTORY: R10.11 - Right upper quadrant pain COMPARISON: None. TECHNIQUE: Supine and upright images of the abdomen FINDINGS: Bowel gas pattern is nonspecific non-obstructive. There is no free air or deep sulci. No pathologic calcifications are seen. Lung bases are unremarkable. S shaped curvature of the thoracolumbar spine. Significant fecal stasis within the colon. No air within the rectum. IMPRESSION: Nonspecific, nonobstructive bowel gas pattern with significant fecal stasis. Reviewed, dictated and finalized at location A. MACHINE OPERATOR
--- OUTSIDE RECORDS SUMMARY | 2024-09-06 16:28 | XMS_ITS | Continuity of Care Document ---
Author Organization [facility] Address [address] [place] [address] [address] [place] [address] Phone Care Team Providers Care Animal Ecologist Name Role Phone Marion Hopkins Unavailable Unavailable Procedures Procedure Date Post-op Follow-up Visit Advance Directives Directive Yes / No Effective Date File Name No Information Encounters Encounter Description Practice Location Reason(s) For Visit Diagnoses Date Provider Providers Copied on Encounter [facility], [address] [place] [address] [address], [place], [place], [id number], [place] tel:[phone] [facility] [place] No Information [address]ie [address]ultz. [address] [facility] , [address], [place], [address], [place]. tel:[phone] Family History Family Member Type Diagnosis Age At Onset No Information Payers Payer name Insurance type Covered democrat ID Authoriza tion(s) No Information Social History [...]
== END 2024-09-06 16:25 | disposition home or self-care (01) ==
PROVIDERS: PCP Family Medicine; Visit Provider Family Medicine
DX: R10.11 Right upper quadrant pain (principal)
CPT/HCPCS: 74019

== ENCOUNTER 2024-09-22 07:34 | Outpatient (CLI) | payer MEDICARE, OTHER, SELFPAY ==
--- NOTE | ~2024-09-22 | US_ITS ---
US abdomen limited INDICATION: Right upper quadrant pain PROCEDURE: Realtime right upper abdominal ultrasound. COMPARISON: Obstructive series dated 09/06/2024 FINDINGS: The pancreas is normal without focal mass or pancreatic ductal dilation. Liver echotexture is normal without focal mass or intrahepatic biliary dilatation. There is normal directional flow i n the portal vein. There are gallstones. No gallbladder wall thickening or pericholecystic fluid. Common bile duct bradford ures 3 mm. No sonographic Russell's sign. IMPRESSION: 1: Gallstones. Reviewed, dictated and finalized at location B. SCREENER IMPRESSION: 1: Gallstones.
--- OUTSIDE RECORDS SUMMARY | 2024-09-22 07:39 | XMS_ITS | Continuity of Care Document ---
Author Organization [facility] Address [address] [place] [address] [address] [place] [address] Phone Care Team Providers Care In File Operator Name Role Phone Marion Hopkins Unavailable Unavailable Procedures Procedure Date Post-op Follow-up Visit Advance Directives Directive Yes / No Effective Date File Name No Information Encounters Encounter Description Practice Location Reason(s) For Visit Diagnoses Date Provider Providers Copied on Encounter [facility], [address] [place] [address] [address], [place], [place], [id number], [place] tel:[phone] [facility] [place] No Information [address] Kellie Schultz. [address] [facility] , [address], [place], [address], [place]. tel:[phone] Family History Family Member Type Diagnosis Age [...]
== END 2024-09-22 07:35 | disposition home or self-care (01) ==
PROVIDERS: PCP Family Medicine; Visit Provider Family Medicine
DX: R10.11 Right upper quadrant pain (principal); K82.4 Cholesterolosis of gallbladder
CPT/HCPCS: 76705

== ENCOUNTER 2024-12-06 01:21 | Day surgery (SDC) | payer MEDICARE, OTHER, SELFPAY ==
[2024-11-23 11:41] VITALS: BMI 36.6
--- OUTSIDE RECORDS SUMMARY | 2024-12-06 01:24 | XMS_ITS | Continuity of Care Document ---
Author Organization [facility] Address [address] [place] [address] [address] [place] [address] Phone Care Team Providers Care Peach Grower Name Role Phone Marion Hopkins Unavailable Unavailable Procedures Procedure Date Post-op Follow-up Visit Advance Directives Directive Yes / No Effective Date File Name No Information Encounters Encounter Description Practice Location Reason(s) For Visit Diagnoses Date Provider Providers Copied on Encounter [facility], [address] [place] [address] [address], [place], [place], [id number], [place] tel:[phone] [facility] [place] No Information [address] Kellie Schultz. [address] [facility] , [address], [place], [address], [place]. tel:[phone] Family History Family Member Type Diagnosis Age At Onset No Information Payers Payer name Insurance type Covered green party ID Authoriza tion(s) No Information Social [...]
[2024-12-06 11:41] VITALS: BP 148/82; PULSE 80; RESP 16; TEMP 36.9; O2SAT 98
[2024-12-06] MEDS: LACTATED RINGERS 1,000 ML 150 ML IV CONT (11:53)
--- NOTE | 2024-12-06 12:45 | P.PNAN_ITS ---
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, Nausea Patient Data Age: 74 Gender: F Height: 1.65 m Weight: 98.4 kg Last Vital Signs Temp 98.4 F 12/06/24 11:41 Pulse 80 12/06/24 11:41 Resp 16 12/06/24 11:41 BP 148/82 H 12/06/24 11:41 Pulse Ox 98 12/06/24 11:41 O2 Del Method Room Air 12/06/24 11:41 Allergies Allergy/AdvReac Type Severity Reaction Status Date / Time No Known Allergies Allergy Verified 12/06/24 11:39 Home Medications ?Medication ?Instructions ?Recorded ?Confirmed ?Type diclofenac potassium 50 mg tablet 50 mg PO TID PRN pain #21 tabs 08/22/23 11/23/24 Rx fluticasone propionate 50 2 spray intranasal .prn 09/17/23 11/23/24 History mcg/actuation nasal spray,suspension (Flonase Allergy Relief) atorvastatin 10 mg tablet See Rx Instructions .Route 12/09/23 12/06/24 Rx .COMPLEX #90 tabs pantoprazole 40 mg tablet,delayed See Rx Instructions .Route 06/07/24 12/06/24 Rx release .COMPLEX #90 tabs amlodipine 5 mg tablet See Rx Instructions .Route 07/22/24 12/06/24 Rx .COMPLEX #90 tabs Patient hx anesthesia problems: none Family hx anesthesia problems: none Results Review: All pre-operative results and documents have been reviewed as part of the pre- operative evaluation. FORMERLY [facility], [facility] Past Medical History Medical History GERD (gastroesophageal reflux disease) Cancer Allergies FH: mastectomy Surgical History Surgical History H/O hysterectomy for benign disease Family History Family History Father Family history of malignant neoplasm of bone Cancer Other Cancer Social History Social History Smoking status: Never smoker Second hand tobacco smoke exposure: No Alcohol intake: never Substance use: never Substance use type: does not use Do You Feel Safe in your Home?: Yes Lack of Transportation: No Lack of Food: Never True Current Housing: I Have Housing Concerned About Future Housing: No Difficulty Paying Gas/Electric Bills: No Difficulty Paying for Meds: No Currently Unemployed: Decline to Answer Education: High School Diploma/GED Difficulty w/ Childcare or Family Care: No Living arrangements: with family Occupation/Education: other Gender identity (if verbalized by the patient): Female Sexual Orientation (if Verbalized by the Patient): Straight or Heterosexual Spiritual care concerns: No Anes - Eval Final PreProcedure Day of Procedure 12/06/24 12:45 Patient weight: obese Heart: regular rate and rhythm Lungs: clear to auscultation Airway: Mallampati scale class II Neurological: alert and oriented Last oral intake: >/= 8 hours ASA classification: III Emergent: no Anesthetic plan: proceed Anesthesia type and monitoring: general GIVS and standard monitoring Results Review: All pre-operative results and documents have been reviewed as part of the pre- operative evaluation. Informed Consent: The patient's anesthetic plan and its attendant risks and benefits were discussed with the patient/family/POA. Questions were solicited and answers provided to the satisfaction of the patient/family/POA.
--- NOTE | 2024-12-06 12:59 | PM.HPGS ---
History of Present Illness History of Present Illness Consent: Risks, benefits, and alternatives have been discussed and questions answered. Patient agrees to proceed with procedure. Chief complaint: Bills's esophagus without dysplasia, Nausea Narrative: Martha Worrell is a 74 year old female with bills's, gerd controlled with ppi, last egd 2021. Had colon polyp in 2019 Review of Systems Review of Systems: All systems reviewed & are unremarkable except as noted in HPI and below PMFSH Past Medical History Medical History GERD (gastroesophageal reflux disease) Cancer Allergies FH: mastectomy Surgical History Surgical History H/O hysterectomy for benign disease Family History Family History Father Family history of malignant neoplasm of bone Cancer Other Cancer Social History Social History Smoking status: Never smoker Second hand tobacco smoke exposure: No Alcohol intake: never Substance use: never Substance use type: does not use Do You Feel Safe in your Home?: Yes Lack of Transportation: No Lack of Food: Never True Current Housing: I Have Housing Concerned About Future Housing: No Difficulty Paying Gas/Electric Bills: No Difficulty Paying for Meds: No Currently Unemployed: Decline to Answer Education: High School Diploma/GED Difficulty w/ Childcare or Family Care: No Living arrangements: with family Occupation/Education: other Gender identity (if verbalized by the patient): Female Sexual Orientation (if Verbalized by the Patient): Straight or Heterosexual Spiritual care concerns: No Meds Home Medications and Allergies Home Medications ?Medication ?Instructions ?Recorded ?Confirmed ?Type diclofenac potassium 50 mg tablet 50 mg PO TID PRN pain #21 tabs 08/22/23 11/23/24 Rx fluticasone propionate 50 2 spray intranasal .prn 09/17/23 11/23/24 History mcg/actuation nasal spray,suspension (Flonase Allergy Relief) atorvastatin 10 mg tablet See Rx Instructions .Route 12/09/23 12/06/24 Rx .COMPLEX #90 tabs pantoprazole 40 mg tablet,delayed See Rx Instructions .Route 06/07/24 12/06/24 Rx release .COMPLEX #90 tabs amlodipine 5 mg tablet See Rx Instructions .Route 07/22/24 12/06/24 Rx .COMPLEX #90 tabs Allergies Allergy/AdvReac Type Severity Reaction Status Date / Time No Known Allergies Allergy Verified 12/06/24 11:39 Vital Signs Vital Signs - 24 hr 12/06/24 11:41 Temperature 98.4 F Pulse Rate 80 Respiratory Rate 16 Blood Pressure 148/82 H Pulse Oximetry 98 Oxygen Delivery Room Air Exam Const: General: comfortable and no acute distress HENMT: Face/Nose/Sinus: Normal nares present Eyes: General: appearance normal, both eyes and all related structures Neck: Neck: no JVD Resp: Auscultation: clear to auscultation bilaterally Cardio: Rate: regular rate Rhythm: regular rhythm GI: Inspection: non-distended GI Palp: Yes Soft to palpation Skin: General skin exam: normal color Neuro: General: gait normal Speech: normal speech Extrem: General: normal to inspection Psych: Mental Status: mental status grossly normal Assessment and Plan Assessment and plan (1) GERD (gastroesophageal reflux disease): Qualifiers: Esophagitis presence: with esophagitis Esophagitis bleeding: without hemorrhage Qualified Code(s): K21.00 - Gastro-esophageal reflux disease with esophagitis, without bleeding Code(s): K21.9 - Gastro-esophageal reflux disease without esophagitis Status: Acute Assessment and Plan: egd on ppi (2) Barretts esophagus: Qualifiers: Bills's esophagus type: without dysplasia Qualified Code(s): K22.70 - Bills's esophagus without dysplasia Code(s): K22.70 - Bills's esophagus without dysplasia Status: Acute (3) Colon polyps: Qualifiers: Colon polyp type: unspecified Colon location: unspecified part of colon Qualified Code(s): K63.5 - Polyp of colon Code(s): K63.5 - Polyp of colon Status: Acute Assessment and Plan: colonoscopy
--- NOTE | 2024-12-06 13:04 | SUR.OPER ---
EGD:[id number] COLON:1313
[2024-12-06 13:27] VITALS: BP 115/58; PULSE 75; RESP 21; O2SAT 96
[2024-12-06 13:37] VITALS: BP 121/69; PULSE 65; RESP 21; O2SAT 100
[2024-12-06 13:47] VITALS: BP 139/75; PULSE 71; RESP 23; O2SAT 100
== END 2024-12-06 13:44 | disposition home or self-care (01) ==
PROVIDERS: PCP Family Medicine; Referring Provider Nurse Practitioner Family; Visit Provider Internal Medicine Gastroenterology
PROC: 0DJ08ZZ Inspection of Upper Intestinal Tract, Via Natural or Artificial Opening Endoscopic (ICD-10-PCS; CPT 45378; principal; 2024-12-06 13:00)
DX: Z12.11 Encounter for screening for malignant neoplasm of colon (principal); K57.30 Diverticulosis of large intestine without perforation or abscess without bleeding; K64.8 Other hemorrhoids; Z86.0100 Personal history of colon polyps, unspecified; K21.00 Gastro-esophageal reflux disease with esophagitis, without bleeding; E66.9 Obesity, unspecified; Z68.36 Body mass index [BMI] 36.0-36.9, adult; Z87.19 Personal history of other diseases of the digestive system
CPT/HCPCS: 43239; G0105; 88305; J2003; J2704; J7120

== ENCOUNTER 2024-12-22 08:16 | Outpatient (CLI) | payer MEDICARE, OTHER, SELFPAY ==
--- NOTE | ~2024-12-22 | DEXA_ITS ---
Bone Density Report Name: WARD TAYLOR Age: 74 Sex: Female Ethnicity: White Date of : 1950 Indication: postmenopausal; screening for osteoporosis; height loss; cancer; hysterectomy; Referring Provider: MEI GUSTAFSON Study: Bone densitometry was performed. Exam Date: December 22, 2024 Accession number: [id number] Bone Density: Region BMD T-score Z-score Classification AP Spine(L1-L4) 1.115 0.6 2.9 Normal Femoral Neck (Left) 0.724 -1.1 0.8 Osteopenia Total Hip (Left) 0.954 0.1 1.7 Normal Femoral Neck (Right) 0.739 -1.0 0.9 Normal Total Hip (Right) 0.955 0.1 1.7 Normal Total Hip Mean 0.954 0.1 1.7 Normal World Health Organization criteria for BMD impression classify patients as: Normal (T-score at or above -1.0), Osteopenia (T-score between -1.0 and -2.5), or Osteoporosis (T-score at or below -2.5). 10-year Fracture Risk(1): Major Osteoporotic Fracture 8.6% Hip Fracture 1.0% Reported Risk Factors: [place] (), Neck BMD=0.724, BMI=38.4 (1) FRAX(R) Version 3.08. Fracture probability calculated for an untreated patient. Fracture probability may be lower if the patient has received treatment. Clinical Information Provided by Patient: Has used the following medications: Vitamin D Has the following medical conditions: Cancer, Hysterectomy, breast CA Patient maximum height was 66.0 Menopause Age: 54 No regular weight bearing exercise Does not regularly consume dairy products Drinks caffeinated beverages Onset of menses at age 15 Number of children 2 Impression: The patient has low bone mass, based on the Left Femoral Neck T-score. The patient has an estimated ten-year risk of hip fracture of 1% and an estimated ten-year risk of major fracture of 8.6%, based on the WHO FRAX algorithm. Discussion: BONE DENSITY IS LOW AT ONE OR MORE SKELETAL SITES. This patient's lowest T-score is low at one or more skeletal sites. It meets the World Health Organization's (WHO) criteria for ?low bone mass? (T-score between -1.0 and -2.5). The patient's 10-year risk of fracture as calculated by FRAX is less than the threshold where pharmacological therapy is recommended by the National Osteoporosis Foundation (NOF). However, all treatment decisions require clinical judgment and consideration of individual patient factors, including patient preferences, comorbidities, previous drug use, risk factors not captured in the FRAX model (e.g., frailty, falls, vitamin D deficiency, increased bone turnover, interval significant decline in bone density) and possible under or overestimation of fracture risk by FRAX. The patient should follow a healthful lifestyle (good nutrition with adequate calcium and vitamin D, and appropriate weight-bearing exercise). Follow-Up: Consider repeating this study in 2 to 3 years to reassess this patient's status, or sooner if there is some new clinical indication. Reported by: ROSALIND on 12/22/2024 8:52:00 AM. Reviewed, dictated and finalized at location A.
--- OUTSIDE RECORDS SUMMARY | 2024-12-22 08:19 | XMS_ITS | Continuity of Care Document ---
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 [address] [facility] , [address], [place], [address], [place]. tel:[phone] Family History Family Member Type Diagnosis Age [...]
== END 2024-12-22 08:17 | disposition home or self-care (01) ==
LOC: ANHIMG 08:17
PROVIDERS: PCP Family Medicine; Visit Provider Family Medicine
DX: M85.852 Other specified disorders of bone density and structure, left thigh (principal); Z78.0 Asymptomatic menopausal state
CPT/HCPCS: 77080

== ENCOUNTER 2025-04-05 09:57 | Outpatient (CLI) | payer MEDICARE, OTHER, SELFPAY ==
--- OUTSIDE RECORDS SUMMARY | 2006-12-17 07:53 | XMS_ITS | Continuity of Care Document ---
Author Organization [facility] Address [address] [place] [address] [address] [place] [address] Phone Care Team Providers Care Deputy District Customs Director Name Role Phone Marion Hopkins Unavailable Unavailable Procedures Procedure Date Post-op Follow-up Visit Advance Directives Directive Yes / No Effective Date File Name No Information Encounters Encounter Description Practice Location Reason(s) For Visit Diagnoses Date Provider Providers Copied on Encounter Merged with [facility], [address] [place] [address] [address], [place], [place], [id number], [place] tel:[phone] [facility] [place] No Information [address] Kellie Schultz. [address] [facility] , [address], [place], [address], [place]. tel:[phone] Family History Family Member Type Diagnosis Age At Onset No Information Payers Payer name Insurance type Covered constitution party ID Authoriza tion(s) No Information Social History Type Description Quantity Date Captured Comments Sex Female Smoking Status No Information Chief Complaint And Reason For Visit No Information Reason For Referral Reason For Referral No Information History Of Present Illness Encounter Date Complaint History Of Prese nt Illness No Information Functional Status Date Functional Assessmen t No Information Instructions Date Instruction Additional Infor mation No Information Assessments Type Assessment Date No Information Patient Care Teams Name Effective Dates (start - stop) Status Members No Information
--- OUTSIDE RECORDS SUMMARY | 2006-12-17 07:53 | XMS_ITS | Continuity of Care Document ---
Author Organization [facility] Address [address] [place] [address] [address] [place] [address] Phone Care Team Providers Care Shop And Alteration Tailor Name Role Phone Marion Hopkins Unavailable Unavailable Procedures Procedure Date Post-op Follow-up Visit Advance Directives Directive Yes / No Effective Date File Name No Information Encounters Encounter Description Practice Location Reason(s) For Visit Diagnoses Date Provider Providers Copied on Encounter [facility], [address] [place] [address] [address], [place], [place], [id number], [place] tel:[phone] [facility] [place] No Information [address] Kellie Schultz. [address] [facility] , [address], [place], [address], [place]. tel:[phone] Family History Family Member Type Diagnosis Age At Onset No Information Payers Payer name Insurance type Covered alliance party ID Authoriza tion(s) No Information Social [...]
[2025-04-05 10:28] LABS: Hematocrit 39.5 % (37.0-47.0); Hemoglobin 13.1 g/dL (12.0-15.0); Immature Granulocyte Percent A 0.2 % (0-0.5); Lymphocytes Absolute Auto 1.36 K/mm3 (0.9-3.2); Mean Corpuscular HGB Conc 33.2 g/dl (32-36); Mean Corpuscular Hemoglobin 29.1 pg (26-34); Mean Corpuscular Volume 87.8 fl (80-100); Nucleated Red Blood Cells Absolute Auto 0.000 K/mm3 (0.0-0.012); Nucleated Red Blood Cells Perc 0.0 % (0.0-0.2); Platelet Count Result 355 k/mm3 (150-375); Red Blood Count 4.50 M/mm3 (4.2-5.4); White Blood Count 8.5 K/mm3 (4.5-10.0)
[2025-04-05 10:35] LABS: Hemoglobin A1C 5.8 % (<5.7)
[2025-04-05 10:49] LABS: Cholesterol 203 mg/dL (0-200); HDL Direct 48 mg/dL; Triglycerides 71 mg/dL (<150)
[2025-04-05 10:50] LABS: Alanine Aminotransferase 22 U/L (6-35); Albumin Level 4.4 g/dL (3.5-5.1); Alkaline Phosphatase 91 U/L (38-126); Anion Gap 9 mmol/L (4-12); Aspartate Amino Transferase 26 U/L (14-36); Bilirubin,Total 0.3 mg/dL (0.2-1.3); Blood Urea Nitrogen 22 mg/dL (7-17); Calcium 9.2 mg/dL (8.4-10.2); Carbon Dioxide 26 mmol/L (22-30); Chloride 103 mmol/L (98-107); Estimated Glomerular Filt Rate > 60; Glucose 101 mg/dL (65-110); Magnesium 2.1 mg/dL (1.6-2.3); Potassium 4.1 mmol/L (3.4-5.0); Sodium 138 mmol/L (137-145); Total Protein 7.6 g/dL (6.3-8.2)
[2025-04-05 11:44] LABS: Vitamin B12 531.0 pg/mL (239-931)
== END 2025-04-05 09:58 | disposition home or self-care (01) ==
PROVIDERS: PCP Family Medicine; Referring Provider Family Medicine; Visit Provider Internal Medicine Cardiovascular Disease
DX: R73.03 Prediabetes (principal); E78.5 Hyperlipidemia, unspecified; I10 Essential (primary) hypertension; E66.9 Obesity, unspecified; R79.89 Other specified abnormal findings of blood chemistry; M54.50 Low back pain, unspecified; G47.33 Obstructive sleep apnea (adult) (pediatric); Z00.00 Encounter for general adult medical examination without abnormal findings; E55.9 Vitamin D deficiency, unspecified
CPT/HCPCS: 36415; 80053; 80061; 82172; 82306; 82607; 83036; 83735; 85025; 99212; G0463